=== PATIENT | male | born 1930 | race Caucasian/White ===

== ENCOUNTER → 2016-12-06 | Day surgery (SDC) | payer OTHER ==
[~2016-12-06] MED LIST: 1-ME1LIQ PO; AMLO10TA2 PO; D32000TA PO; DOCU100C PO; FLUT50SP EACH NARE; GLUC1CAP16 PO; HYDR-3366 PO; HYDR-3535 PO; IOHEXOL 180 MG/ML 20 ML VIAL (for RAD DIAG) ONE; LACTATED RINGER'S 1000 ML INJ 1,000 ML ONE; MISC-163; PROPOFOL 200 MG/20 ML AMP IV ONE; QUET25 PO; TRIAMCINOLONE ACETONIDE 40 MG/ML VIAL ONE; VITA500T49 PO; WALKER WHEELS/F1 MIS; XARE10TA PO
--- NOTE | 2016-12-06 15:02 | TN ---
cc: CURTIS GUZMÁN DATE OF SURGERY: 12/06/2016. PREOPERATIVE DIAGNOSIS: 1. Osteoarthritis of the right hip. 2. Arthrofibrosis of the right hip. POSTOPERATIVE DIAGNOSIS: 1. Osteoarthritis of the right hip. 2. Arthrofibrosis of the right hip. OPERATIVE PROCEDURE PERFORMED: 1. Manipulation of the right hip under anesthesia. 2. Injection of right hip with Kenalog, 40 mg. 3. Arthrogram of the right hip. 4. Use of fluoroscopy for needle placement. 5. Intraoperative x-ray right hip, post arthrogram. SURGEON: Curtis Guzmán MD. ANESTHESIA: TIVA. ESTIMATED BLOOD LOSS: None. INDICATIONS FOR THE PROCEDURE: This patient is an 86-year-old male who is having progressive loss of range of motion and pain of the right hip. The patient is having debilitating discomfort. His x-rays show moderate arthritis and his hip pain is greater than I might expect based on the x-rays alone. He has had a previous left total hip replacement arthroplasty in 2007 and has done well. Yet the patient is having progressive discomfort and does not respond to conservative care, consider surgical management of his right hip. DESCRIPTION OF THE PROCEDURE IN DETAIL: The patient was brought to the operating room and given limited sedation. The right hip was scrubbed with alcohol followed by Hibiclens followed Chloraprep and draped sterilely. Antibiotics were held. The hip was manipulated. Range of motion prior to manipulation was: extension -20, flexion 80, internal rotation 20, external rotation 20, adduction 15, abduction 25. After manipulation, range of motion was: Extension 0, flexion 100, internal rotation 25, external rotation 30, adduction 25, abduction 35. Under fluoroscopy, a spinal needle was advanced down to the anterior aspect of the right hip joint. It was negative prone on aspiration. We then injected contrast. This contrast showed evidence of marked loss of articular cartilage and mild erosive changes. There was no leak of contrast. We then injected with 40 mg of Kenalog and 3 mL of 1% lidocaine plain. The hip was run through a second range of motion. Intraoperative x-rays were obtained showing changes as noted on the arthrogram. There was no evidence of a fracture. The patient was awakened and taken to the recovery room in satisfactory condition. Curtis MD ELIEL Amos/JEREMIAS /2:44 PM /2:55 PM
== END | disposition home or self-care (01) ==
LOC: EDBD 12:51 → ESDC 12:51
PROVIDERS: ATTEND Orthopaedic Surgery Orthopaedic Surgery of the Spine
DX: M16.11 Unilateral primary osteoarthritis, right hip (principal); M24.651 Ankylosis, right hip
CPT/HCPCS: 01200; 27275; 73502; J3010; J3301; J7120; Q9965

== ENCOUNTER 2017-01-02 13:46 | Inpatient (IN) | payer OTHER, MEDICARE ==
[~2017-01-02] VITALS: Ht 165.1 cm; Wt 73.8 kg
[2017-01-13] MEDS ORDERED: DOCU100C PO (09:41)
[2017-01-13] MEDS ORDERED: AMLO10TA2 PO (09:41)
[2017-01-13] MEDS ORDERED: VITA500T49 PO (09:41)
[2017-01-13] MEDS ORDERED: D32000TA PO (09:41)
[2017-01-13] MEDS ORDERED: HYDR-3535 PO (09:41)
[2017-01-13] MEDS ORDERED: GLUC1CAP16 PO (09:41)
--- NOTE | 2017-01-14 05:15 | MH ---
cc: CURTIS GUZMÁN M.D. 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 HISTORY This is an 86-year-old male with significant right hip pain. Investigative studies show evidence of collapse of the femoral head likely related to avascular necrosis. The patient has preexisting arthritis of the right hip to begin with. He has had extensive conservative care. He now presents for surgical treatment. PAST MEDICAL HISTORY, SOCIAL HISTORY, FAMILY HISTORY, REVIEW OF SYSTEMS See attached notes. PHYSICAL EXAMINATION GENERAL: An 86-year-old male in moderate distress with his right hip. HEENT: Normocephalic, atraumatic. Pupils equal, round, reactive to light and accommodation. Extraocular motions intact. NECK: Supple. CHEST: Clear. HEART: Regular rate and rhythm. ABDOMEN: Soft, nontender with normoactive bowel sounds. MUSCULOSKELETAL EXAMINATION: Right hip pain with range of motion, especially with internal or external rotation. Mild shortening of the right leg compared to the left. NEUROLOGIC AND VASCULAR EXAMINATION: Within normal limits. IMPRESSION Osteoarthritis/avascular necrosis right hip. PLAN Right total hip replacement arthroplasty, direct anterior exposure. CONSENT There are risks with surgery including infection, bleeding, loss of motion, continued pain, need for further surgery, neurologic and vascular injury. The patient understands these issues and wishes to press on with the surgery as outlined above. MD ELIEL Arora/NADIA /10:47 PM /5:11 AM
[2017-01-14] MEDS ORDERED: SODIUM CHLOR 0.9% 250 ML INJ 250 ML ONE ×2 (08:56→09:22)
[2017-01-14] MEDS ORDERED: LACTATED RINGER'S 1000 ML INJ 1,000 ML ONE (08:56)
[2017-01-14] MEDS ORDERED: VANCOMYCIN HCL 1000 MG VIAL ONE ×2 (08:56→09:22)
[2017-01-14 09:21] VITALS: BP 172/83; PULSE 70; RESP 22; TEMP 96.9; O2SAT 99
[2017-01-14] MEDS ORDERED: LACTATED RINGER'S 1000 ML IV SCH (09:30)
[2017-01-14] MEDS ORDERED: VANCOMYCIN 1000 MG/NS 250 ML (for <70 kg) IV SCH ×2 (09:30)
[2017-01-14] MEDS ORDERED: INSULIN HUMAN REGULAR 1,000 UNITS/10 ML VIAL SQ PRN (09:30)
[2017-01-14] MEDS ORDERED: ceFAZolin 2 GM PREMIX 50 ML IV SCH (09:30)
[2017-01-14] MEDS ORDERED: SODIUM CHLORID 0.9% 500 ML IV SCH (09:30)
[2017-01-14] MEDS: POVIDONE IODINE 7.5% SCRUB 118 ML BOTTLE TOPICAL SCH (09:30)
[2017-01-14] MEDS ORDERED: SODIUM CHLORIDE 0.9% IV SCH ×2 (09:30→15:45)
[2017-01-14] MEDS ORDERED: TRANEXAMIC ACID IV SCH ×2 (09:30→15:45)
[2017-01-14] MEDS ORDERED: METOPROLOL TARTRATE 25 MG TAB PO PRN (09:30)
[2017-01-14] MEDS ORDERED: EXPAREL PERI-ARTICULAR INJECTION (TOTAL VOL. 60 ML) P-ARTICULR SCH ×2 (09:30)
[2017-01-14] MEDS ORDERED: DEXAMETHASONE SOD PHOS 4 MG/ML VIAL ONE (10:41)
[2017-01-14] MEDS ORDERED: ACETAMINOPHEN 1000 MG/100 ML VIAL IV ONE (10:41)
[2017-01-14] MEDS ORDERED: MIDAZOLAM HCL 2 MG/2 ML VIAL ONE (10:41)
[2017-01-14] MEDS ORDERED: GENTAMICIN SULFATE 80 MG/2 ML VIAL ONE (10:55)
[2017-01-14] MEDS ORDERED: ePHEDrine/NS 25 MG/5 ML SYR IV ONE (12:00)
[2017-01-14] MEDS ORDERED: PHENYLEPH/NS 1000 MCG/10 ML SYR IV ONE (12:00)
[2017-01-14] MEDS ORDERED: NEOSTIGMINE 3 MG/3 ML SYR IV ONE (12:00)
[2017-01-14] MEDS ORDERED: PROPOFOL 200 MG/20 ML AMP IV ONE (12:00)
[2017-01-14] MEDS ORDERED: LACTATED RINGER'S 1000 ML INJ 1,000 ML IV ONE (12:00)
[2017-01-14] MEDS ORDERED: ONDANSETRON HCL 4 MG/2 ML VIAL IV PUSH ONE (12:00)
--- NOTE | 2017-01-14 14:09 | PD.OP ---
cc: Manuel Saavedra MD Operative Report Date of Surgery: Jan 14, 2017 Preoperative Diagnosis: Osteoarthritis right hip/avascular necrosis Postoperative Diagnosis: Same Procedure: Right total hip replacement arthroplasty, direct anterior exposure Anesthesia: Gen. Surgeon: Manuel Saavedra Editor Department(s): RENA[facility] Miramontes Operation and Findings: EBL: 300 cc INDICATION: This patient presents with significant hip pain related to severe osteoarthritis with evidence of avascular necrosis. Despite extensive conservative care this patient continues to be painful and now presents for surgical treatment. NOTE: Deidre Miramontes PA-C was present for the entire surgical procedure as my certified nursing assistant instructor. In my medical opinion her skill and care was necessary for the proper management of this patient. COMPONENTS: COMPANY: [employer] CUP: [place], 54 mm, sector series, gription surface LINER: Altrx 36 mm, neutral STEM: Size 13, [place], high offset, hydroxyapatite-coated HEAD: 36 mm, +5 neck length, /14 taper PROCEDURE: This patient was brought to the operating room and anesthetized in the supine position and positioned on the fracture table with both legs held extended. The right hip and leg was scrubbed with alcohol followed by Hibiclens followed by ChloraPrep and draped sterilely. Antibiotics were given within routine time window and a timeout was done. A 4 inch incision was made starting 2 cm distal and 2 cm lateral to the anterior superior iliac spine. The fascia carolina was opened longitudinally. The interval between the fascia carolina and the rectus was opened down to the capsule of the hip joint. Retractors were positioned allowing good visualization of the capsule. This was opened longitudinally and flaps were created. Stay sutures were utilized. Exposure was excellent. The neck was cut at the proper location using fluoroscopy as a guide. The head was removed. Deep retractors were positioned allowing good visualization of the acetabulum. Acetabulum was deepened down to the floor starting with a proper size reamer and reaming up to 53 mm. A trial was utilized. Fluoroscopy was used to check position and confirmed satisfactory alignment. The rim was reamed with a 54 mm reamer and the final cup was positioned in approximately 20 of anteversion and 40-45 of abduction. Position was satisfactory. A single hole eliminator was positioned followed by the final liner. The lifting hook was utilized. The leg was dropped to the floor, maximally externally rotated and brought across the midline. Retractors were positioned. A box osteotome was utilized followed by progressive broaching to the proper stem size. Trial reduction showed excellent alignment and fit. With 60 of external rotation the leg was dropped to the floor without evidence of anterior subluxation. The wound was irrigated. The final stem was inserted and was found to be very stable. The final reduction using the final head. Stability was as previously noted. Intraoperative x-rays were taken. The wound was irrigated copiously. Hemostasis was controlled. Local anesthesia was utilized. The capsule was repaired with #2 Tycron sutures. The fascia carolina was repaired with running 0 PDS on a loop. Subcutaneous tissue was approximated with 2-0 Vicryl and skin with running intradermal 3-0 Vicryl followed by Steri-Strips. A sterile dressing was applied. The patient was awakened and taken to the recovery room in satisfactory condition. FINDINGS: There was evidence of severe osteoarthritis. A segment of the head showed evidence of avascular necrosis with loosening of the articular cartilage and slight defect of the bone beneath it. The final solution was very good. No complication was appreciated. Manuel Saavedra MD Jan 14, 2017 14:09
[2017-01-14] MEDS ORDERED: XARE10TA PO (14:12)
[2017-01-14] MEDS ORDERED: HYDR-3366 PO (14:12)
[2017-01-14] MEDS ORDERED: Post-op Orders (for Pharmacy) MISC XX ONE (14:15)
[2017-01-14] MEDS ORDERED: MISCELLANEOUS PHARMACY INFORMATION XX ONE (14:15)
[2017-01-14] MEDS ORDERED: SODIUM CHLORIDE 0.9% FLUSH 5 ML FLUSH IVF PRN (14:15)
[2017-01-14] MEDS ORDERED: MISCELLANEOUS NURSING INFORMATION XX PRN (14:15)
[2017-01-14] MEDS ORDERED: NALOXONE HCL 0.4 MG/ML AMP IV PRN (14:15)
[2017-01-14] MEDS ORDERED: ACETAMINOPHEN/HYDROcodone 325 MG/10 MG TAB PO PRN (14:15)
[2017-01-14] MEDS ORDERED: MORPHINE SULFATE 8 MG/ML INJ IM PRN (14:15)
[2017-01-14] MEDS ORDERED: MORPHINE SULFATE 30 MG/30 ML PCA IV SCH (14:15)
[2017-01-14] MEDS ORDERED: fentaNYL CITRATE 250 MCG/5 ML AMP ONE (14:48)
--- NOTE | 2017-01-14 14:53 | RADRPT ---
EXAM DATE/TIME: 01/14/2017 12:54 [facility] COMPARISON: HIP RIGHT (AP&LAT 2/3VWS) WO AP PELVIS, December 06, 2016, 14:31. INDICATIONS : Post Op total right hip arthroplasty. MEDICAL HISTORY : None. SURGICAL HISTORY : Total left hip arthroplasty. ENCOUNTER: Subsequent ACUITY: 1 day PAIN SCORE: Non-responsive. LOCATION: Right Hip. FINDINGS: 2 intraoperative spot images of the right hip. Total hip prosthesis in place. Alignment within normal limits. CONCLUSION: Intraoperative images showing right total hip prosthesis in place. Jose Chacon MD on January 14, 2017 at 14:51 Board Certified Radiologist. This report was verified electronically.
[2017-01-14] MEDS ORDERED: *morphine SULFATE 8 MG/ML PERIprocedure ONLY ONE ×2 (15:08→15:20)
[2017-01-14] MEDS: LACTATED RINGER'S 1000 ML INJ 1,000 ML IV SCH (15:30)
[2017-01-14 17:00] VITALS: BP 121/69; PULSE 95; RESP 16; TEMP 95.6; O2SAT 94
[2017-01-14] MEDS ORDERED: WALKER WHEELS/F1 MIS (17:12)
[2017-01-14] MEDS ORDERED: MISC-163 (17:12)
--- NOTE | 2017-01-14 17:12 | HHI.FF ---
Face to Face Verification Diagnosis: (1) Right hip pain (2) Osteoarthritis of right hip (3) Avascular necrosis of bone of right hip Physical Therapy Hip: Total hip, Protocol: Right, Progress to weight bearing Right LE Weight Bearing: WB as tolerated Additional Instructions PT 5 days/wk for 2 weeks. WBAT RLE. Anterior kristal precautions. Walker / gait training. Nursing RN Days per Week: 3 x Week(s): 1 Dressing Changes: Do not change dressing Additional Instructions Vitals assessment, dressing assessment - do not change unless saturated or erythema I have seen patient Alex Waite on 01/14/17. My clinical findings support the need for the requested home health care services because: Limited ability to care for self High risk of falls I certify that my clinical findings support that this patient is homebound because: Post-op weakness Unsteady gait/balance Glory Tolentino Jan 14, 2017 17:12
[2017-01-14 20:24] VITALS: BP 142/94; PULSE 85; RESP 20; TEMP 99.2; O2SAT 94
[2017-01-14] MEDS: MAGNESIUM HYDROXIDE SUSP 30 ML CUP PO SCH (20:36)
[2017-01-14] MEDS: SENNOSIDES 8.6 MG TAB PO SCH (20:36)
[2017-01-14] MEDS: PCA - TOTAL MG MORPHINE DELIVERED PER SHIFT SCH (20:36)
[2017-01-14] MEDS: SODIUM CHLORIDE 0.9% FLUSH 5 ML FLUSH IVF SCH (20:36)
[2017-01-15] VITALS (7 sets, daily range): BP systolic 120–152; BP diastolic 64–80; PULSE 78–92; RESP 17–21; TEMP 98–100; O2SAT 91–95
[2017-01-15 05:53] LABS: HEMATOCRIT 34.6 % (39.0-51.0); REVIEW FLAG FINAL
[2017-01-15] MEDS: PCA - TOTAL MG MORPHINE DELIVERED PER SHIFT SCH (06:00)
[2017-01-15] MEDS: ACETAMINOPHEN/HYDROcodone 325 MG/10 MG TAB PO PRN ×4 (06:02→18:32)
--- NOTE | 2017-01-15 07:36 | PD.ORT.PN ---
Subjective Subjective Remarks When I entered the room he was speaking somewhat incoherently naming multiple family members. By the time he calmed down he was able to answer questions. He has mild to moderate right hip pain. The pain medication helps. No new radiating leg pain. He got out of bed yesterday but was concerned because no one got him up in a chair late last night. No CP or SOB. Objective Vitals Vital Signs Date Time Temp Pulse Resp B/P Pulse Ox O2 Delivery O2 Flow Rate FiO2 01/15/17 06:00 16 01/15/17 04:15 99.3 78 21 127/67 94 01/15/17 00:22 98.2 87 20 120/67 95 01/14/17 20:24 99.2 85 20 142/94 94 01/14/17 19:50 Nasal Cannula 2.00 01/14/17 17:00 95.6 95 16 121/69 94 01/14/17 15:45 97.5 82 14 132/78 95 Nasal Cannula 2 01/14/17 15:39 15 01/14/17 15:30 77 14 127/71 95 Nasal Cannula 2 01/14/17 15:15 83 14 150/87 95 Nasal Cannula 2 01/14/17 15:00 80 14 131/76 95 Nasal Cannula 2 01/14/17 14:45 82 14 145/87 94 Nasal Cannula 2.5 01/14/17 14:38 97.5 94 15 167/84 94 Nasal Cannula 2.5 01/14/17 09:21 96.9 70 22 172/83 99 I/O 01/14/17 01/14/17 01/14/17 01/15/17 01/15/17 01/15/17 07:00 15:00 23:00 07:00 15:00 23:00 Intake Total 2600 ml 783 ml 360 ml Output Total 1400 ml 500 ml 350 ml Balance 1200 ml 283 ml 10 ml Intake Oral 360 ml 360 ml IV Total 423 ml Other 2600 ml Output Urine Total 800 ml 500 ml 350 ml Estimated Blood Loss 600 ml # Bowel Movements 0 0 Result Diagram: 01/15/17 0530 Objective Remarks Laying in bed, Alert but seemingly disoriented on entry, resolved after 2-3 minutes NAD VSS RLE Hip dressing c/d/i, no drainage, mild swelling, thigh and calf supple, neg homans +motor at, +sens, +nvi Assessment & Plan Ortho Post Op Day #: 1 Problem List: Assessment and Plan pod#1 s/p R ERMELINDA, 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 Xarelto 10mg qd PT - WBAT RLE. Anterior ermelinda procotol. Hold dressing changes unless saturated. D/C planning, SNF vs [facility] F2F written. Glory Tolentino Jan 15, 2017 07:36
[2017-01-15] MEDS: POVIDONE IODINE 7.5% SCRUB 118 ML BOTTLE TOPICAL SCH (09:30)
[2017-01-15] MEDS: MAGNESIUM HYDROXIDE SUSP 30 ML CUP PO SCH ×2 (10:09→19:49)
[2017-01-15] MEDS: SODIUM CHLORIDE 0.9% FLUSH 5 ML FLUSH IVF SCH ×2 (10:10→19:49)
[2017-01-15] MEDS: RIVAROXABAN 10 MG TAB PO SCH (14:34)
[2017-01-15] MEDS: LACTATED RINGER'S 1000 ML INJ 1,000 ML IV SCH ×2 (17:00→19:48)
[2017-01-15] MEDS: SENNOSIDES 8.6 MG TAB PO SCH (19:49)
[2017-01-15] MEDS ORDERED: BISACODYL 10 MG SUPP RECTAL PRN (23:15)
[2017-01-16 00:12] VITALS: BP 157/77; PULSE 86; RESP 19; TEMP 99.9; O2SAT 93
[2017-01-16] MEDS: ACETAMINOPHEN/HYDROcodone 325 MG/10 MG TAB PO PRN ×2 (06:17→10:04)
[2017-01-16 08:00] VITALS: BP 118/62; PULSE 83; RESP 19; TEMP 97.5; O2SAT 92
--- NOTE | 2017-01-16 09:00 | PD.ORT.PN ---
Subjective Subjective Remarks Much easier to understand today. With a family member. Right hip pain better today. No new radiating leg pain. Urinating well. No BM yet. Appetite good. Ready for d/c home. No CP or SOB. Objective Vitals Vital Signs Date Time Temp Pulse Resp B/P Pulse Ox O2 Delivery O2 Flow Rate FiO2 01/16/17 08:00 97.5 83 19 118/62 92 01/16/17 00:12 99.9 86 19 157/77 93 01/15/17 20:06 100.0 89 20 128/73 92 01/15/17 15:45 98.9 92 18 152/79 92 01/15/17 12:05 91 21 01/15/17 11:45 98.0 78 17 124/64 93 I/O 01/15/17 01/15/17 01/15/17 01/16/17 01/16/17 01/16/17 07:00 15:00 23:00 07:00 15:00 23:00 Intake Total 360 ml 460 ml 480 ml 240 ml Output Total 350 ml 0 ml 500 ml 200 ml Balance 10 ml 460 ml -20 ml 40 ml Intake Oral 360 ml 460 ml 480 ml 240 ml Output Urine Total 350 ml 0 ml 500 ml 200 ml # Voids 0 # Bowel Movements 0 0 0 0 Result Diagram: 01/15/17 0530 Objective Remarks Laying in bed, Family member at beside, AAOx3, NAD VSS RLE Hip dressing c/d/i, no drainage, mild swelling, thigh and calf supple, neg homans +motor at, +sens, +nvi Assessment & Plan Ortho Post Op Day #: 2 Problem List: Assessment and Plan pod#2 s/p R ERMELINDA, anterior Doing much better today. Ortho stable. Ok to d/c home w [facility] after PT today. PO pain meds as needed. Xarelto 10mg qd PT - WBAT RLE. Anterior ermelinda procotol. Hold dressing changes unless saturated. F/U in 2 weeks as scheduled. F2F written. Glory Tolentino Jan 16, 2017 09:00
--- NOTE | 2017-01-16 09:01 | HHI.DCPOC ---
Discharge Care Plan Diagnosis: (1) Osteoarthritis of right hip (2) Right hip pain Your Health Problems Are: Incision/Drains Swelling Goals to Promote Your Health * To prevent worsening of your condition and complications * To maintain your health at the optimal level Directions to Meet Your Goals Take your medications as prescribed Follow your dietary instruction Follow activity as directed Keep your appointments as scheduled Take your immunizations and boosters as scheduled If your symptoms worsen call your PCP, if no PCP go to Urgent Care Center or Emergency Room Smoking is Dangerous to Your Health. Avoid second hand smoke Call the 24-hour hour crisis hotline for domestic abuse at Glory Tolentino Jan 16, 2017 09:01
--- NOTE | 2017-01-16 09:05 | HHI.DS ---
Discharge Summary Admission Date Jan 14, 2017 at 08:32 Discharge Date: Jan 16, 2017 Admitting Diagnosis see below Diagnosis: (1) Right hip pain Diagnosis: Principal (2) Avascular necrosis of bone of right hip Diagnosis: Principal (3) Osteoarthritis of right hip Diagnosis: Principal Procedures Right total hip arthroplasty, Direct anterior approach Brief History This is a 86 year old male patient with a history of right hip. It increased rapidly over the last 4-5 months. Imaging studies showed some arthritis but evidence for AVN. Conservative care was only pursued for a short period of time as his pain escalated rapidly. Eventually surgical treatment was recommended and he elected to move forward. CBC/BMP: 01/15/17 0530 Significant Findings Laboratory Tests Test 01/15/17 05:30 Hemoglobin 11.5 GM/DL (13.0-17.0) Hematocrit 34.6 % (39.0-51.0) PE at Discharge Laying in bed, Family member at beside, AAOx3, NAD VSS RLE Hip dressing c/d/i, no drainage, mild swelling, thigh and calf supple, neg homans +motor at, +sens, +nvi Hospital Course Surgical treatment was performed on the day of admission without complication. He recovered well in pACU and was transferred to the orthopaedic floor. Pain was controlled with IV and oral medications. DVT prophylaxis was initiated pod# 1. He was compliant with physical therapy and all kristal precautions. After 2 days he was found to be stable and discharged home with home health care with instruction to continue PT and to pursue a high fiber diet for the next 3-5 days. Pt Condition on Discharge: Stable Discharge Disposition: Disch w/ Home Health Serv Discharge Instructions Diet Instructions: As Tolerated, No Restrictions, High Fiber Diet Activities You Can Perform: Weight Bearing as Ry Activities to Avoid: Strenuous Activity Additional Activity Instruc.: anterior kristal protocol New Medications: 3-in-1 Bedside Toilet (3-in-1 Bedside Toilet) 1 Mis Mis 1 EA .ROUTE DIRECTED #1 EA Hydrocodone-Acetaminophen (Page) 10-325 Mg Tab 1 TAB PO Q4H PRN PAIN #50 Ref 0 TAB Rivaroxaban (Xarelto) 10 Mg Tab 10 MG PO DAILY PRN Prevent Blood Clot #25 Ref 0 TAB Walker with Front Wheels (Walker with Front Wheels) 1 Mis Mis 1 EA .ROUTE DIRECTED #1 Ref 0 EA Continued Medications: Amlodipine (Amlodipine) 10 Mg Tab 10 MG PO DAILY Blood Pressure Management #30 Ref 0 TAB Cholecalciferol (D3) 2,000 Unit Tab 1 TAB PO DAILY Nutritional Supplement Cyanocobalamin (Vitamin B12) 500 Mcg Tab 500 MCG PO DAILY Nutritional Supplement #1 BOTTLE Docusate Sodium (Docusate Sodium) 100 Mg Cap 100 MG PO DAILY PRN CONSTIPATION #60 Ref 0 CAP Zpqorcnieub-Szetgicihle-Pdb C- (Glucosamine Chondroitin) 1 Cap Cap 1 TAB PO DAILY Nutritional Supplement Hydrocodone-Acetaminophen (Lortab) 10-325 Mg Tab 1 TAB PO Q6H PRN PAIN Ref 0 TAB Glory Tolentino Jan 16, 2017 09:05
[2017-01-16] MEDS: MAGNESIUM HYDROXIDE SUSP 30 ML CUP PO SCH (09:08)
[2017-01-16] MEDS: POVIDONE IODINE 7.5% SCRUB 118 ML BOTTLE TOPICAL SCH (09:09)
[2017-01-16] MEDS: SODIUM CHLORIDE 0.9% FLUSH 5 ML FLUSH IVF SCH (09:09)
[2017-01-16 09:57] VITALS: O2SAT 95
[2017-01-16 11:47] VITALS: BP 110/69; PULSE 96; RESP 19; TEMP 97.7; O2SAT 92
[2017-01-16] MEDS: RIVAROXABAN 10 MG TAB PO SCH (12:38)
== END 2017-01-16 17:57 | disposition home or self-care (01) | DRG 470 ==
LOC: HSDI 01-14 08:32 → N06B 01-14 16:47
PROVIDERS: ADMIT Orthopaedic Surgery Orthopaedic Surgery of the Spine; ATTEND Orthopaedic Surgery Orthopaedic Surgery of the Spine
PROC: 0SR90JA Replacement of Right Hip Joint with Synthetic Substitute, Uncemented, Open Approach (ICD-10-PCS; principal; 2017-01-14 12:06)
DX: M16.11 Unilateral primary osteoarthritis, right hip (principal); M87.9 Osteonecrosis, unspecified; Z96.642 Presence of left artificial hip joint
CPT/HCPCS: 36415; 73502; 76000; 85014; 85018; 86850; 86900; 86901; 86920; 94150; C1776; C9290; J0131; J0690; J1100; J1580; J2250; J2270; J2370; J2405; J2710; J3010; J3370; J7050; J7120

== ENCOUNTER 2017-11-23 17:47 | Inpatient (IN) | payer OTHER, MEDICARE ==
[~2017-11-23] VITALS: Ht 165.1 cm; Wt 76.2 kg
[~2017-11-23 17:47] MED LIST changes: -1-ME1LIQ PO; -DOCU100C PO; +DOCU100C15 PO; -FLUT50SP EACH NARE; -IOHEXOL 180 MG/ML 20 ML VIAL (for RAD DIAG) ONE; -LACTATED RINGER'S 1000 ML INJ 1,000 ML ONE; -PROPOFOL 200 MG/20 ML AMP IV ONE; -QUET25 PO; -TRIAMCINOLONE ACETONIDE 40 MG/ML VIAL ONE; +VITA500T35 PO; -VITA500T49 PO
[2017-11-23 17:57] VITALS: BP_SYST 92; PULSE 85; RESP 18; O2SAT 96
[2017-11-23] MEDS ORDERED: MORPHINE SULFATE 2 MG/ML INJ IV PUSH ONE (18:45)
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
[2017-11-23] MEDS: SODIUM CHLORIDE 0.9% FLUSH 10 ML FLUSH IVF PRN ×2 (19:31→23:06)
[2017-11-23 19:32] VITALS: BP 174/94; PULSE 72; RESP 16; O2SAT 94
[2017-11-23 19:33] LABS: AUTOMATED NEUTROPHIL # 19.3 TH/MM3 (1.8-7.7); BASOPHIL # 0.1 TH/MM3 (0-0.2); BASOPHIL % 0.5 % (0.0-2.0); EOSINOPHIL # 0.3 TH/MM3 (0-0.4); EOSINOPHIL % 1.3 % (0.0-4.0); HEMATOCRIT 47.9 % (39.0-51.0); HEMOGLOBIN 16.1 GM/DL (13.0-17.0); LYMPHOCYTE # 1.4 TH/MM3 (1.0-4.8); MEAN CELL VOLUME 90.1 FL (80.0-100.0); MEAN CORPUSCULAR HEMOGLOBIN 30.3 PG (27.0-34.0); MEAN CORPUSCULAR HGB CONC 33.6 % (32.0-36.0); MEAN PLATELET VOLUME 7.1 FL (7.0-11.0); MONO % 6.9 % (0.0-8.0); MONOCYTE # 1.6 TH/MM3 (0-0.9); NEUT % 85.3 % (16.0-70.0); PLATELET COUNT 342 TH/MM3 (150-450); RED BLOOD COUNT 5.32 MIL/MM3 (4.50-5.90); RED CELL DISTRIBUTION WIDTH 13.2 % (11.6-17.2); WHITE BLOOD COUNT 22.6 TH/MM3 (4.0-11.0)
[2017-11-23 19:45] LABS: INTERNATIONAL NORMALIZED RATIO 1.1 RATIO; PROTHROMBIN TIME - PATIENT 10.8 SEC (9.8-11.6)
[2017-11-23 19:54] LABS: ALBUMIN 3.6 GM/DL (3.4-5.0); AST (GOT) 43 U/L (15-37); BICARBONATE 24.6 MEQ/L (21.0-32.0); BLOOD UREA NITROGEN 20 MG/DL (7-18); CALCIUM 8.9 MG/DL (8.5-10.1); CHLORIDE 105 MEQ/L (98-107); CREATININE 1.16 MG/DL (0.60-1.30); GLOMERULAR FILTRATION RATE 60 ML/MIN (>89); GLUCOSE,RANDOM 111 MG/DL (74-106); MAGNESIUM 2.3 MG/DL (1.5-2.5); SODIUM (NA) 136 MEQ/L (136-145)
[2017-11-23 19:58] LABS: ALKALINE PHOSPHATASE 72 U/L (45-117); ALT (GPT) 26 U/L (12-78); TOTAL BILIRUBIN ADULT 1.2 MG/DL (0.2-1.0); TOTAL PROTEIN 7.6 GM/DL (6.4-8.2); TROPONIN I LESS THAN 0.02 NG/ML (0.02-0.05)
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
[2017-11-23] MEDS ORDERED: SENNOSIDES 8.6 MG TAB PO PRN (21:00)
[2017-11-23] MEDS ORDERED: BISACODYL 10 MG SUPP RECTAL PRN (21:00)
[2017-11-23] MEDS ORDERED: SODIUM CHLORIDE 0.9% FLUSH 10 ML FLUSH IV FLUSH PRN (21:00)
[2017-11-23] MEDS: DOCUSATE SODIUM 50 MG/SENNA 8.6 MG TAB PO SCH (21:00)
[2017-11-23] MEDS ORDERED: ACETAMINOPHEN 325 MG TAB PO PRN (21:00)
[2017-11-23] MEDS ORDERED: ONDANSETRON HCL 4 MG/2 ML VIAL IVP PRN (21:00)
[2017-11-23] MEDS ORDERED: MAGNESIUM HYDROXIDE SUSP 30 ML CUP PO PRN (21:00)
[2017-11-23 22:17] VITALS: BP 111/73; PULSE 81; RESP 18; O2SAT 92
[2017-11-23] MEDS: ACETAMINOPHEN/HYDROcodone 325 MG/5 MG TAB PO PRN (22:52)
[2017-11-23] MEDS: SODIUM CHLORIDE 0.9% FLUSH 10 ML FLUSH IV FLUSH SCH (23:07)
[2017-11-23] MEDS: SODIUM CHLOR 0.9% 1000 ML INJ 1,000 ML IV SCH (23:07)
[2017-11-24] MEDS: MORPHINE SULFATE 2 MG/ML INJ IV PUSH PRN ×5 (01:48→22:57)
[2017-11-24] MEDS: SODIUM CHLORIDE 0.9% FLUSH 10 ML FLUSH IVF PRN (01:48)
[2017-11-24 01:53] VITALS: BP 150/69; PULSE 73; RESP 17; TEMP 97.8; O2SAT 92
[2017-11-24 06:04] VITALS: BP 132/81; PULSE 72; RESP 18; TEMP 98.1; O2SAT 92
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
[2017-11-24 08:00] VITALS: BP 138/75; PULSE 69; RESP 17; TEMP 98.7; O2SAT 91
[2017-11-24 08:09] LABS: AUTOMATED NEUTROPHIL # 9.2 TH/MM3 (1.8-7.7); BASOPHIL % 0.3 % (0.0-2.0); EOSINOPHIL # 0.4 TH/MM3 (0-0.4); EOSINOPHIL % 3.3 % (0.0-4.0); HEMATOCRIT 43.4 % (39.0-51.0); HEMOGLOBIN 14.9 GM/DL (13.0-17.0); LYMPH % 11.9 % (9.0-44.0); LYMPHOCYTE # 1.4 TH/MM3 (1.0-4.8); MEAN CORPUSCULAR HEMOGLOBIN 30.9 PG (27.0-34.0); MEAN CORPUSCULAR HGB CONC 34.4 % (32.0-36.0); MONO % 6.9 % (0.0-8.0); MONOCYTE # 0.8 TH/MM3 (0-0.9); NEUT % 77.6 % (16.0-70.0); PLATELET COUNT 276 TH/MM3 (150-450); RED BLOOD COUNT 4.83 MIL/MM3 (4.50-5.90); RED CELL DISTRIBUTION WIDTH 12.9 % (11.6-17.2); WHITE BLOOD COUNT 11.8 TH/MM3 (4.0-11.0)
[2017-11-24 08:39] LABS: ALBUMIN 3.1 GM/DL (3.4-5.0); AST (GOT) 17 U/L (15-37); BICARBONATE 26.5 MEQ/L (21.0-32.0); BLOOD UREA NITROGEN 20 MG/DL (7-18); CALCIUM 8.5 MG/DL (8.5-10.1); CHLORIDE 105 MEQ/L (98-107); CREATININE 1.07 MG/DL (0.60-1.30); GLOMERULAR FILTRATION RATE 66 ML/MIN (>89); GLUCOSE,RANDOM 95 MG/DL (74-106); SODIUM (NA) 138 MEQ/L (136-145)
[2017-11-24 08:40] LABS: CHOLESTEROL 151 MG/DL (120-200); TRIGLYCERIDES 99 MG/DL (42-150)
[2017-11-24 08:45] LABS: ALKALINE PHOSPHATASE 62 U/L (45-117); ALT (GPT) 20 U/L (12-78); CHOLESTEROL/ HDL RATIO 2.27 RATIO; HDL CHOLESTEROL 66.4 MG/DL (40.0-60.0); LDL CHOLESTEROL 65 MG/DL (0-99); TOTAL BILIRUBIN ADULT 2.2 MG/DL (0.2-1.0); TOTAL PROTEIN 6.4 GM/DL (6.4-8.2); TROPONIN I LESS THAN 0.02 NG/ML (0.02-0.05)
[2017-11-24] MEDS: ASPIRIN EC 81 MG TABEC PO SCH (08:56)
[2017-11-24] MEDS: DOCUSATE SODIUM 50 MG/SENNA 8.6 MG TAB PO SCH ×2 (08:56→21:33)
[2017-11-24] MEDS: PRAVASTATIN SOD 40 MG TAB PO SCH (08:56)
[2017-11-24] MEDS: SODIUM CHLORIDE 0.9% FLUSH 10 ML FLUSH IV FLUSH SCH ×2 (08:58→21:33)
--- NOTE | 2017-11-24 09:20 | RADRPT ---
EXAM DATE/TIME: 11/24/2017 08:40 [facility] COMPARISON: No previous studies available for comparison. INDICATIONS : Transient ischemic attack. MEDICAL HISTORY : Hypertension. Gastroesophageal reflux disease. Numbness. Arthritis. MRSA. SURGICAL HISTORY : Bilateral cataract removal. Spinal fusion. TURP. Bilateral hip replacements. ENCOUNTER: Initial ACUITY: 2 days PAIN SCORE: 10/10 LOCATION: Bilateral neck PEAK SYSTOLIC VELOCITIES (cm/sec): ICA/CCA RATIO: Right: 1.4 Left: 0.6 ICA: Right: 83 Left: 54 CCA: Right: 61 Left: 89 ECA: Right: 67 Left: 71 VERTEBRAL: Right: 40 antegrade Left: 44 antegrade Elevated flow velocities and ICA/CCA ratios have been found to correlate with increased degrees of vessel stenosis, calculated as percentage of diameter relative to a normal segment of distal ICA/CCA FINDINGS: RIGHT CAROTID: There is no evidence for a hemodynamically significant carotid stenosis. Minimal int imal hyperplasia is present with scattered calcific plaque. LEFT CAROTID: There is no evidence for a hemodynamically significant carotid stenosis. Minimal inti mal hyperplasia is present with scattered calcific plaque. VERTEBRAL ARTERIES: Flow is antegrade in both vertebral arteries. MISCELLANEOUS: There are no ancillary masses or adenopathy. CONCLUSION: Negative examination for a hemodynamically significant carotid stenosis. Georges Santoyo MD FACR on November 24, 2017 at 9:17 Board Certified Radiologist. This report was verified electronically.
--- NOTE | 2017-11-24 10:16 | RADRPT ---
EXAM DATE/TIME: 11/24/2017 09:38 [facility] COMPARISON: No previous studies available for comparison. INDICATIONS : TIA. Dizziness. MEDICAL HISTORY : Hypertension. SURGICAL HISTORY : Fusion, lumbar. ORIF bilat hips, TURP ENCOUNTER: Subsequent ACUITY: 2 day PAIN SCORE: 0/10 LOCATION: cranial TECHNIQUE: Multiplanar, multisequence MRI of the brain was performed without contrast. FINDINGS: There are findings of acute infarction involving the right occipital lobe and right parietal lobe. Th ere are small punctate areas of restricted diffusion in the right frontal lobe as well. Susceptibilit y weighted imaging demonstrates restricted diffusion in the right occipital and right parietal region s. There is no significant mass effect or midline shift. Posterior fossa structures are unremarkable. CONCLUSION: Findings of acute infarct involving the right occipital right parietal region with small focal areas of hemorrhage. There is also small embolic infarcts in the right frontal region. Abel Juárez MD on November 24, 2017 at 10:09 Board Certified Radiologist. This report was verified electronically.
[2017-11-24] MEDS: ACETAMINOPHEN/HYDROcodone 325 MG/5 MG TAB PO PRN ×2 (10:18→21:37)
[2017-11-24] MEDS: SODIUM CHLOR 0.9% 1000 ML INJ 1,000 ML IV SCH (10:20)
[2017-11-24] MEDS ORDERED: RESP: ALBUTEROL 2.5 MG/IPRATROPIUM 0.5 MG NEB (PRN) NEB (11:15)
[2017-11-24] MEDS ORDERED: ENALAPRILAT 2.5 MG/2 ML VIAL IV PUSH PRN (11:15)
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
[2017-11-24 12:30] VITALS: BP 142/65; PULSE 70; RESP 18; TEMP 98.9; O2SAT 92
--- NOTE | 2017-11-24 13:06 | RADRPT ---
EXAM DATE/TIME: 11/24/2017 09:38 [facility] COMPARISON: MRI BRAIN W/O CONTRAST, November 24, 2017, 9:38. CT BRAIN W/O CONTRAST, November 23, 2017, 18:50. INDICATIONS : TIA. MEDICAL HISTORY : Hypertension. SURGICAL HISTORY : Fusion, lumbar. Bilate hip replacements. ENCOUNTER: Initial ACUITY: 2 day PAIN SCORE: 0/10 LOCATION: head Please note a normal MRA of the brain does not entirely exclude the possibility of a small aneurysm, nor the possibility of distal intracranial vessel disease. TECHNIQUE: 3D time of flight MRA was performed. Source images, multiplanar STS MIP, and 3D volume MIP reconstru ctions were reviewed. FINDINGS: There is a filling defect present within the right MCA bifurcation region and mildly diminished flow related enhancement in the vessels beyond this by comparison to the contralateral left side. The righ t posterior cerebral artery is relatively diminutive with poor flow related enhancement compared to t he left side. There is no evidence of aneurysm or vascular malformation. CONCLUSION: Right MCA bifurcation filling defect with mild compromise of distal circulation. Small right ASSISTANT CORPORATE SECRETARY with relatively diminished flow related enhancement, appearance potentially developme ntal. Correlation recommended. Fabricio Borjas MD on November 24, 2017 at 12:58 Board Certified Radiologist. This report was verified electronically.
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
[2017-11-24 15:30] VITALS: PULSE 69
[2017-11-24 16:24] LABS: HEMOGLOBIN A1C 5.5 % (4.3-6.0)
[2017-11-24 20:00] VITALS: BP 152/76; PULSE 76; RESP 17; TEMP 98.1; O2SAT 92
[2017-11-24] MEDS: LACTULOSE SYRUP 20 GM/30 ML CUP PO PRN (21:34)
--- NOTE | 2017-11-24 22:12 | EKG ---
Date Performed: 11/23/2017 Time Performed: 19:17:59 PTAGE: 87 years EKG: Sinus rhythm WITH OCCASIONAL VENTRICULAR PREMATURE COMPLEXES MARKED LEFT AXIS DEVIATION MODERATE VOLTAGE CRITERIA FOR LVH, CONSIDER NORMAL VARIANT ABNORMAL ECG INTERPRETATION BASED ON A DEFAULT AGE OF 40 YEARS NO PREVIOUS TRACING DOCTOR: Gael Mcdaniel Interpretating Date/Time 11/24/2017 22:03:57
[2017-11-25] VITALS (11 sets, daily range): BP systolic 121–161; BP diastolic 63–96; PULSE 70–87; RESP 16–20; TEMP 97–99.1; O2SAT 92–98
[2017-11-25] MEDS: MORPHINE SULFATE 2 MG/ML INJ IV PUSH PRN ×3 (04:11→20:35)
[2017-11-25] MEDS: SODIUM CHLORIDE 0.9% FLUSH 10 ML FLUSH IVF PRN (04:13)
[2017-11-25] MEDS: DOCUSATE SODIUM 50 MG/SENNA 8.6 MG TAB PO SCH ×2 (08:43→20:35)
[2017-11-25] MEDS: PRAVASTATIN SOD 40 MG TAB PO SCH (08:43)
[2017-11-25] MEDS: ASPIRIN EC 81 MG TABEC PO SCH (08:43)
[2017-11-25] MEDS: ACETAMINOPHEN/HYDROcodone 325 MG/5 MG TAB PO PRN ×3 (08:44→22:46)
[2017-11-25] MEDS: SODIUM CHLORIDE 0.9% FLUSH 10 ML FLUSH IV FLUSH SCH ×2 (08:48→20:36)
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
--- NOTE | 2017-11-25 12:10 | ECHRPT ---
Indication: cva/tia CONCLUSIONS Normal left ventricular size. The left ventricular systolic function is normal with an estimated ejection fraction in the range of 55-60%. [id number] mitral valve regurgitation. Aortic valve sclerosis is present. Mild aortic valve regurgitation. There is mild tricuspid valve regurgitation. The estimated pulmonary arterial pressure is 37.7 mmHg. BP: / HR: Rhythm: MEASUREMENTS (Male / Female) Normal Values Technical Quality:Technically difficult study 2D ECHO LV Diastolic Diameter PLAX 3.9 cm 4.2 - 5.9 / 3.9 - 5.3 cm LV Systolic Diameter PLAX 3.0 cm IVS Diastolic Thickness 1.3 cm 0.6 - 1.0 / 0.6 - 0.9 cm LVPW Diastolic Thickness 1.1 cm 0.6 - 1.0 / 0.6 - 0.9 cm LV Relative Wall Thickness 0.6 RV Internal Dim ED PLAX 3.2 cm M-MODE Aortic Root Diameter MM 3.8 cm LA Systolic Diameter MM 3.5 cm LA Ao Ratio MM 0.9 AV Cusp Separation MM 1.9 cm DOPPLER Mitral E Point Velocity 45.4 cm/s Mitral A Point Velocity 74.5 cm/s Mitral E to A Ratio 0.6 LV E' Lateral Velocity 7.7 cm/s Mitral E to LV E' Lateral Ratio 5.9 LV E' Septal Velocity 7.6 cm/s Mitral E to LV E' Septal Ratio 6.0 TR Peak Velocity 263.0 cm/s TR Peak Gradient 27.7 mmHg Right Atrial Pressure 10.0 mmHg Pulmonary Artery Systolic Pressu 37.7 mmHg Right Ventricular Systolic Press 37.7 mmHg FINDINGS LEFT VENTRICLE Normal left ventricular size. The left ventricular systolic function is normal with an estimated ejection fraction in the range of 55-60%. RIGHT VENTRICLE Normal right ventricular size and systolic function. LEFT ATRIUM The left atrial size is normal. RIGHT ATRIUM The right atrial size is normal. ATRIAL SEPTUM Normal atrial septal thickness without atrial level shunting by limited color doppler interrogation. AORTA The aortic root and proximal ascending aorta are normal in size on limited imaging. MITRAL VALVE Structurally normal mitral valve. [id number] mitral valve regurgitation. AORTIC VALVE Trileaflet aortic valve. Aortic valve sclerosis is present. Mild aortic valve regurgitation. TRICUSPID VALVE Structurally normal tricuspid valve. There is mild tricuspid valve regurgitation. The estimated pulmonary arterial pressure is 37.7 mmHg. PULMONARY VALVE No pulmonary valve regurgitation or stenosis. VESSELS The inferior vena cava is normal in size. PERICARDIUM No pericardial effusion. Barber Britt MD, FACC (Electronically Signed) Final Date:25 November 2017 12:09
[2017-11-26] VITALS (8 sets, daily range): BP systolic 125–177; BP diastolic 72–90; PULSE 69–90; RESP 18–20; TEMP 97.7–98.9; O2SAT 90–98
[2017-11-26] MEDS: MORPHINE SULFATE 2 MG/ML INJ IV PUSH PRN ×4 (00:14→12:36)
[2017-11-26] MEDS: SODIUM CHLORIDE 0.9% FLUSH 10 ML FLUSH IVF PRN ×2 (00:14→04:32)
[2017-11-26] MEDS: ASPIRIN EC 81 MG TABEC PO SCH (07:54)
[2017-11-26] MEDS: PRAVASTATIN SOD 40 MG TAB PO SCH (07:54)
[2017-11-26] MEDS: SODIUM CHLORIDE 0.9% FLUSH 10 ML FLUSH IV FLUSH SCH ×2 (07:54→21:00)
[2017-11-26] MEDS: DOCUSATE SODIUM 50 MG/SENNA 8.6 MG TAB PO SCH ×2 (07:54→20:49)
--- NOTE | 2017-11-26 13:09 | HM ---
Date Performed: 11/24/2017 Time Performed: 16:36:00 HOOKUP DATE: 11/24/17 04:36:00 PM Mon ANALYSIS START TIME: 11/24/2017 4:41:00 PM ANALYSIS END TIME: 11/25/2017 4:33:00 PM PATIENT AGE: 87 PATIENT HEIGHT: 65 PATIENT WEIGHT: 163 DRUG LIST: room # 1507 PATIENT DIAGNOSIS: TIA/NEAR SYNCOPE TEST NARRATIVE: The patient's average heart rate was 77 BPM. Heart rates greater than 120 B PM were noted < 1% of the time. No episodes of bradycardia were noted. No pauses exceeding 2.0 s econds were noted. 2668 ventricular ectopics, which represented 2% of the total beat count, were noted. The highest ventricular ectopic frequency occurred from 11:00 PM to 12:00 AM Tue. During thi s time 143 VE(s) occurred. Ventricular ectopics were observed as 2662 isolated beat(s), as 1 couplet (s) and as 1 run(s). 1262 supraventricular ectopics, which represented 1% of the total beat count , were noted. The highest supraventricular ectopic frequency occurred from 08:00 AM to 09:00 AM Tue. During this time 206 SVE(s) occurred. No episodes of ST depression (defined as -1.0 mm or more) were noted in channel 1. No episodes of ST depression (defined as -1.0 mm or more) were noted in ch crow 2. No episodes of ST depression (defined as -1.0 mm or more) were noted in channel 3. TEST INTERPRETATION: Sinus rhythm occasional PACs and short atrial runs rare runs of nonsustained ventricular tachycardia ( 4 beats) Signed by : Barber Britt
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
[2017-11-26] MEDS ORDERED: PILL SPLITTER OTHER PRN (14:15)
[2017-11-26] MEDS ORDERED: MORPHINE SULFATE 2 MG/ML INJ IV PUSH PRN (14:15)
[2017-11-26] MEDS: ACETAMINOPHEN/HYDROcodone 325 MG/5 MG TAB PO PRN ×2 (16:00→20:50)
[2017-11-26] MEDS: METOPROLOL TARTRATE 25 MG TAB PO SCH (20:50)
[2017-11-27] VITALS (8 sets, daily range): BP systolic 140–174; BP diastolic 74–87; PULSE 64–72; RESP 16–20; TEMP 97.5–98.1; O2SAT 93–97
[2017-11-27] MEDS: ACETAMINOPHEN/HYDROcodone 325 MG/5 MG TAB PO PRN ×2 (06:01→09:52)
[2017-11-27] MEDS: PRAVASTATIN SOD 40 MG TAB PO SCH (08:02)
[2017-11-27] MEDS: ASPIRIN EC 81 MG TABEC PO SCH (08:03)
[2017-11-27] MEDS: LACTULOSE SYRUP 20 GM/30 ML CUP PO PRN (08:03)
[2017-11-27] MEDS: SODIUM CHLORIDE 0.9% FLUSH 10 ML FLUSH IV FLUSH SCH (08:03)
[2017-11-27] MEDS: DOCUSATE SODIUM 50 MG/SENNA 8.6 MG TAB PO SCH (08:03)
[2017-11-27] MEDS: METOPROLOL TARTRATE 25 MG TAB PO SCH (08:03)
[2017-11-27] MEDS ORDERED: amLODIPine BESYLATE 5 MG TAB PO SCH (09:00)
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
[2017-11-27] MEDS ORDERED: ACETAMINOPHEN/HYDROcodone 325 MG/10 MG TAB PO PRN (11:00)
[2017-11-27] MEDS ORDERED: ECASA81 PO (13:56)
[2017-11-27] MEDS ORDERED: PRAV40TA PO (13:56)
[2017-11-27] MEDS ORDERED: HYDR-3583 PO (13:56)
[2017-11-27] MEDS ORDERED: METO25TA3 PO (13:57)
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
== END 2017-11-27 19:10 | DRG 65 ==
LOC: NEPE 17:47 → NEDA 20:38 → OBSVTOIN 20:54 → N05A 22:36
PROVIDERS: ADMIT Internal Medicine; ATTEND Internal Medicine
DX: I63.40 Cerebral infarction due to embolism of unspecified cerebral artery (principal); S02.19XA Other fracture of base of skull, initial encounter for closed fracture; S02.2XXA Fracture of nasal bones, initial encounter for closed fracture; V47.5XXA Car driver injured in collision with fixed or stationary object in traffic accident, initial encounter; Y92.410 Unspecified street and highway as the place of occurrence of the external cause; I10 Essential (primary) hypertension; D72.829 Elevated white blood cell count, unspecified; G89.29 Other chronic pain; M54.9 Dorsalgia, unspecified; Z96.643 Presence of artificial hip joint, bilateral; Z86.14 Personal history of Methicillin resistant Staphylococcus aureus infection; Z98.1 Arthrodesis status; Z87.891 Personal history of nicotine dependence
CPT/HCPCS: 70450; 70486; 70544; 70551; 71045; 80053; 80061; 80307; 82550; 82552; 83036; 83735; 84484; 85025; 85610; 85730; 93005; 93225; 93226; 93306; 93880; 96374; J2270; J7030